=== PATIENT | male | born 1975 | race Caucasian/White ===

== ENCOUNTER 2016-11-10 10:53 | Emergency (ER) | payer SELFPAY ==
[2016-11-10 11:15] VITALS: TEMP 97.9; BMI 26.6
[2016-11-10] MEDS ORDERED: LABETALOL 20 MG/4 ML SYRINGE IV ONE (11:19)
--- NOTE | 2016-11-10 11:35 | EDPRACDOC ---
- General Information Stated Complaint: HEADACHE/ RIB CAGE PAIN Time Seen by Provider: 11/10/16 11:13 Information Source: Patient Mode Of Arrival: Car Home Medications: Home Medications Atenolol [Tenormin] 50 mg PO DAILY #30 tablet 11/10/16 Hydrochlorothiazide [Hydrodiuril] 25 mg PO QAM #30 cap 11/10/16 Allergies/Adverse Reactions: Allergies Allergy/AdvReac Type Severity Reaction Status Date / Time No Known Allergies Allergy Verified 11/10/16 11:17 - History of Present Illness Onset: 2 days HPI: PT PRESENTS TODAY WITH GARSIA X 1 WEEK. PT STATES THAT HE TOOK IBUPROFEN YESTERDAY W/OUT RELIEF. PT STATES THAT TODAY HIS GARSIA BECAME SO SEVERE THAT HE BEGAN HAVING BLURRED VISION WHILE DRIVING. PT STATES THAT HE HAS A PMH OF HTN, BUT DOES NOT FOLLOW A PCP. STATES SOME LEFT CHEST WALL PAIN WHEN COUGHING/ MOVEMENT. DENIES FEVER, DIZZINESS, BLURRED VISION AT THIS TIME, SHOB, ABD PAIN , N/V/D. NO APPARENT DISTRESS. Location: Reports: Generalized Pain Quality: Reports: Moderate, Throbbing, Like Previous Headaches (WHEN DX WITH HTN) Relevant History of: Reports: Hypertension Associated Signs and Symptoms: Reports: Occasional Headache, Vision Changes ED Past Medical History - History Reviewed Yes Nurses notes reviewed and agree except as marked - Social Medical History Smoking Status: Heavy tobacco smoker (5 or more cigarettes/day or daily pipe/ cigar) EDM Review of Systems - Review of Systems ROS Negative Except as Marked: Yes All systems reviewed and were negative except as marked Constitutional: No Symptoms Reported Eyes: Blurred Vision Ears: No Symptoms Reported Throat: No Symptoms Reported Nose: No Symptoms Reported Respiratory: No Symptoms Reported Cardiovascular: No Symptoms Reported Gastrointestinal: No Symptoms Reported Neurological: Dizziness, Headache Musculoskeletal: Chestwall Integumentary: No Symptoms Reported - Physical Exam Constitutional: Alert (Awake), No apparent distress Oriented to: Time, Person, Place Last recorded Vital Signs: Last Vital Signs Temp 97.9 F 11/10/16 11:11 Pulse 94 11/10/16 11:11 Resp 18 11/10/16 11:11 BP 200/123 H 11/10/16 11:11 Pulse Ox 95 11/10/16 11:11 Oxygen Pulse Oxygen Saturation 95 O2 Device Room Air Oxygen Flow Rate Fraction of Inspired Oxygen ( FIO2) - HEENT Head: Normal Eye Exam: Normal (PERRL; RED REFLEX NOTED; EOMI) Oropharynx: Normal Tympanic Membrane: Normal ENT EAC: Normal Nose: No Symptoms Reported Neck: Normal, Denies Pain, Midline - Respiratory/Cardiovascular Respiratory: Normal - CTA Cardiovascular: Tachycardia - GI Palpation: Normal Tenderness: Non tender - Musculoskeletal Back: Normal Extremities: Normal - Integumentary Skin: Normal Lymphatics: Normal - Neurologic Cerebellar: Normal Mood Description: Normal Thought: Coherent Perception: Normal - Re-evaluation Re-evaluation 1 Re-evaluation Time: 12:52 Re-evaluation: GARSIA SOMEWHAT BETTER AFTER BP SLIGHTLY LOWERED. Re-evaluation 2 Re-evaluation Time: 13:33 Re-evaluation: BP IMPROVED; NO LONG C/O GARSIA. OK FOR HOME. - Results 11/10/16 12:17 11/10/16 12:40 - EKG EKG #1 EKG Time: 11:35 -: Yes EKG interpreted by me Rate: bpm: 77 [place]: Normal Rhythm: NSR Block: None Hypertrophy: None ST: Normal Decision Time to Discharge: 13:33 - Departure Disposition: Home Condition: Improved Final Diagnosis: Hypertension Qualifiers: Hypertension type: essential hypertension Qualified Code(s): I10 - Essential ( primary) hypertension Instructions: Chronic Hypertension (ED) Education/Counseling Given To: Patient Education/Counseling Given Regarding: Diagnosis, Treatment, Follow Up Referrals: None,No Provider [Primary Care Provider] - One Week Andrei Valdivia II, MD [Staff Physician] - One Week Sona Hernández MD [Staff Physician] - One Week GABRIELA NIELSON [NonStaff] - One Week Prescriptions: Atenolol [Tenormin] 50 mg PO DAILY #30 tablet Hydrochlorothiazide [Hydrodiuril] 25 mg PO QAM #30 cap Additional Instructions: YOU HAVE BEEN GIVEN 2 REFILLS FOR YOUR BLOOD PRESSURE MEDICATION. PLEASE ESTABLISH A PCP TO CONTINUE THIS. IF YOU DO NOT CONTROL YOUR BLOOD PRESSURE, IT CAN CAUSE KIDNEY FAILURE OR POSSIBLY A STROKE.
--- NOTE | 2016-11-10 12:05 | DIRPT ---
CLINICAL DATA: Chest pain for 1 week. Headache for 2 days. Initial encounter. EXAM: PORTABLE CHEST 1 VIEW COMPARISON: None. FINDINGS: The lungs are clear. Heart size is normal. There is no pneumothorax or pleural effusion. No focal bony abnormality. IMPRESSION: Negative chest. Electronically Signed By: Rafi Haley M.D. On: 11/10/2016 12:02
--- NOTE | 2016-11-10 12:19 | DIRPT ---
CLINICAL DATA: Headache and hypertension for 2 days EXAM: CT HEAD WITHOUT CONTRAST TECHNIQUE: Contiguous axial images were obtained from the base of the skull through the vertex without intravenous contrast. COMPARISON: None. FINDINGS: Normal ventricular morphology. No midline shift or mass effect. Normal appearance of brain parenchyma. No intracranial hemorrhage, mass lesion, or evidence acute infarction. No extra-axial fluid collections. Calcified subcutaneous nodule LEFT parietal scalp. Bones and sinuses unremarkable. IMPRESSION: No acute intracranial abnormalities. Electronically Signed By: Mike Moya M.D. On: 11/10/2016 12:17
[2016-11-10 12:25] LABS: AUTOMATED BASOPHIL 0.3 % (0-2); AUTOMATED EOSINOPHIL 4.7 % (0-5); AUTOMATED LYMPH 33.4 % (17-44); AUTOMATED MONOCYTE 11.2 % (3-10); AUTOMATED NEUTROPHIL 50.4 % (45-76); MPV 9.8 fL (7.4-10.4)
[2016-11-10] MEDS ORDERED: KETOROLAC TROMETH 30 MG/ML VIAL IV ONE (12:41)
[2016-11-10] MEDS ORDERED: MORPHINE 4 MG/ML INJECTION IV ONE (12:41)
[2016-11-10 12:42] LABS: PARTIAL THROMB. TIME 22.6 SEC (22-35); PT-INR 1.1
[2016-11-10 13:00] LABS: BLOOD UREA NITROGEN 16 MG/DL (9-20); CALCIUM 9.4 MG/DL (8.4-10.2); CALCULATED OSMOLALITY 273 MOs/Kg (270-290); CHLORIDE 105 mEq/L (98-107); GLUCOSE 116 MG/DL (70-99); SODIUM LEVEL 141 mEq/L (137-146); TOTAL PROTEIN 7.4 G/DL (6.3-8.2)
[2016-11-10 13:17] VITALS: BP 184/101; PULSE 64
== END 2016-11-10 13:44 | disposition home or self-care (01) ==
LOC: EDMC 10:53
DX: I10 Essential (primary) hypertension (principal)
CPT/HCPCS: 36415; 70450; 71010; 80053; 84484; 85025; 85610; 85730; 93005; 96374; 96375; 99284; J1885; J2270; J3490